=== PATIENT | male | born 1935 | race Caucasian/White ===

== ENCOUNTER 2024-02-20 08:26 | Outpatient (CLI) | payer MEDICARE | END 2024-02-20 08:27 | disposition home or self-care (01) | LOC: CSHSLEEP 08:26 | PROVIDERS: ATTEND Nurse Practitioner Family | DX: G47.33 Obstructive sleep apnea (adult) (pediatric) (principal); R53.83 Other fatigue; R09.89 Other specified symptoms and signs involving the circulatory and respiratory systems; E11.9 Type 2 diabetes mellitus without complications; K21.9 Gastro-esophageal reflux disease without esophagitis; E66.9 Obesity, unspecified; Z68.27 Body mass index [BMI] 27.0-27.9, adult; R06.83 Snoring; R35.1 Nocturia; I25.10 Atherosclerotic heart disease of native coronary artery without angina pectoris; I11.9 Hypertensive heart disease without heart failure; R09.02 Hypoxemia | CPT/HCPCS: 95800 ==